=== PATIENT | female | born 1940 | race Caucasian/White ===

== ENCOUNTER 2023-09-29 06:22 | Inpatient (IN) | payer MEDICARE, SELFPAY ==
[2023-09-23 07:57] VITALS: BMI 27.2
[2023-09-23 08:43] LABS: Hematocrit 37.4 % (37.0-47.0); Hemoglobin 12.3 g/dL (12.0-16.0); Mean Corp Hgb Conc. 32.9 g/dL (33.0-37.0); Mean Corpuscular Volume 97.4 fL (81.0-99.0); Mean Platelet Volume 11.6 fL (7.4-10.4); Platelet Count 162 10^3/uL (130-400); Red Blood Cell Count 3.84 10^6/uL (4.20-5.40); Red Cell Dist. Width 12.5 % (11.5-14.5); White Blood Cell Count 5.9 10^3/uL (4.8-10.8)
[2023-09-23 08:59] LABS: Blood Urea Nitrogen 21 mg/dl (7-17); Carbon Dioxide 29 mmol/L (22-30); Chloride 104 mmol/L (98-107); Estimated Creatinine Clearance 53 ml/min; Glucose 84 mg/dl (70-99); Potassium 4.3 mmol/L (3.5-5.1); Sodium 138 mmol/L (135-145); eGFR > 60.00
[2023-09-29] VITALS (30 sets, daily range): BP systolic 0–161; BP diastolic 55–97; BMI 27.2
[2023-09-29] MEDS: TYLENOL 1000 MG PO (08:51)
[2023-09-29] MEDS: NORMOSOL-R 1000 IV ×3 (08:52→23:00)
--- NOTE | 2023-09-29 13:56 | W.IMMPOSTOP ---
Addendum entered and electronically signed by Gunnar Chavez MD 09/29/23 15:31:
[facility]# [id number]
Original Note:
Surgical Immed Post Op Note
-
Primary Surgeon: Kathy
Assisting Surgeon: Dru
Pre-op Diagnosis: Recurrent ventral incisional hernia
Post-op Diagnosis: Recurrent ventral incisional hernia
Procedure Performed: Exploratory laparotomy, lysis of adhesions, bilateral myofascial releases (TAR), open repair of ventral incisional hernia repair with mesh
Anesthesia Type: General
Specimen / Cultures: None
Estimated Blood Loss: 23 cc
Complications: None
Operative Findings:
1. Omental, colonic and small bowel adhesions, BENITA > 90 min
2. Hernia defect 15 x 25 cm
3. Bilateral TAR myofascial releases, neurovascular bundles protected
4. Retrorectus Bard soft 30 x 30 cm mesh
5. Primary closure of posterior and anterior sheath
6. R JSOH into retrorectus space, L JOSH into subcutaneous space
[2023-09-29] MEDS: TYLENOL 650 MG PO ×2 (17:15→20:38)
--- NOTE | 2023-09-29 18:29 | PTCARENOTE ---
Received from PACU this afternoon- IMU monitors placed - admission completed. AAOx3 c/o minimal 2/10 pain abdomen. Clear liquids provided, IVF infusing as ordered. 95% on RAIR- IS given. SR on tele, BP 150/90s- due to resume metoprolol this pm
other meds in am. Abdominal binder intact- under that is ABD pads that remain CDI. JPx2 on right and left abd. patent- emptied and recorded. Dowell in place have some blood tinged urine, adequate output though- Dr. Chavez aware. SCDs intact
--- NOTE | 2023-09-29 20:30 | PTCARENOTE ---
Received pt from [facility]. Pt is AAOx3, NOORVIK. NSR on the monitor. On RA O2 sat 94%, lungs clear. Dowell in place, hygiene provided. R and L JOSH drains intact. Abd incision c/d/i. SCDs in place. IVF infusing @ 100 ml/hr. Pt is laying comfortable in
bed with call evnas in reach.
[2023-09-29] MEDS: ULTRAM 50 MG PO (20:37)
[2023-09-29] MEDS: TOPROL XL 50 MG PO (20:38)
[2023-09-30] VITALS (18 sets, daily range): BP systolic 116–165; BP diastolic 54–102
[2023-09-30] MEDS: TYLENOL PO ×3 (00:12→23:59)
[2023-09-30] MEDS: ULTRAM 50 MG PO ×4 (02:43→20:15)
[2023-09-30] MEDS: TYLENOL 650 MG PO ×4 (02:43→20:15)
[2023-09-30] MEDS: SYNTHROID 112 MCG PO (05:50)
--- NOTE | 2023-09-30 07:41 | W.PN.GS2 ---
Today's Communication / Plan
-
-- Fulls, consider advancement to regular this afternoon/evening if no issues throughout the day
-- Pain control: Tylenol, Toradol, Tramadol, IV Morphine PRN
-- HLIV, tentative plan to restart Lasix tomorrow
-- Maintain Dowell for now given mobility issues, plan for DC tomorrow
-- Home medications ordered
Assessment / Plan
-
Patient is an 83 yo F POD#1 s/p open recurrent ventral incisional hernia repair with retrorectus mesh and bilateral myofascial release
Recovering well. No postoperative concerns.
-- Fulls, consider advancement to regular this afternoon/evening if no issues throughout the day
-- Pain control: Tylenol, Toradol, Tramadol, IV Morphine PRN
-- HLIV, tentative plan to restart Lasix tomorrow
-- Maintain Dowell for now given mobility issues, plan for DC tomorrow
-- Home medications ordered
-- Hold Eliquis, Lovenox for DVT
-- PPI for GI
-- OOB/ambualte
Subjective Data
-
Date of Service: September 30, 2023
No major complaints. Pain overall well-controlled and rated at a 6-7 out of 10. Reports burping, but denies any nausea or vomiting. Passing flatus, no BM. No fevers. No ambulation.
Objective Data
-
Intake and Output
09/29/23 09/30/23 10/01/23
06:59 06:59 06:59
Intake Total 2960 / 2960
Output Total 2495 / 2495
Balance 465 / 465
Intake:
Oral fluids 1010 / 1010
IV fluids (Total) 1950 / 1950
Normosol 150 / 150
Output:
Drain Output (Total) 285 / 285
Left Abdomen Param-Ptarick B 45 / 45
Right Abdomen ParamDarnell A 240 / 240
Urine, Dowell 2210 / 2210
Vital Signs
Temp Pulse Resp BP Pulse Ox
99.1 F 61 16 154/68 95
09/30/23 03:10 09/30/23 06:00 09/30/23 06:00 09/30/23 06:00 09/30/23 06:00
Calcium 9.0 mg/dl (8.4-10.2) 09/23/23 07:17
Physical Exam
-
Gen: NAD
Abd: soft, appropriately tender, ND, non-peritoneal, midline with minor shadowing, JOSH with serosang
: Dowell cleared
[2023-09-30] MEDS: LIPITOR 10 MG PO (07:52)
[2023-09-30] MEDS: TOPROL XL 50 MG PO ×2 (07:52→20:16)
[2023-09-30] MEDS: PACERONE 100 MG PO ×2 (07:52→21:46)
[2023-09-30] MEDS: NSS (PRESERVATIVE FREE) 10 ML IV (07:53)
[2023-09-30] MEDS: PROTONIX IV 40 MG IV (07:53)
[2023-09-30 08:29] LABS: Hematocrit 33.1 % (37.0-47.0); Hemoglobin 11.3 g/dL (12.0-16.0); Mean Corp Hgb Conc. 34.1 g/dL (33.0-37.0); Mean Corpuscular Hgb 32.3 pg (27.0-31.0); Mean Corpuscular Volume 94.6 fL (81.0-99.0); Mean Platelet Volume 10.9 fL (7.4-10.4); Platelet Count 160 10^3/uL (130-400); Red Cell Dist. Width 12.7 % (11.5-14.5); White Blood Cell Count 11.6 10^3/uL (4.8-10.8)
[2023-09-30 08:42] LABS: Blood Urea Nitrogen 9 mg/dl (7-17); Calcium 8.1 mg/dl (8.4-10.2); Carbon Dioxide 30 mmol/L (22-30); Chloride 105 mmol/L (98-107); Estimated Creatinine Clearance 70 ml/min; Glucose 114 mg/dl (70-99); Potassium 4.4 mmol/L (3.5-5.1); Sodium 138 mmol/L (135-145); eGFR > 60.00
--- NOTE | 2023-09-30 15:00 | PTCARENOTE ---
Received pt from IMU.Report from [facility]. Pt awake, alert and oriented x3. Pt assessment unchanged from previous shift. Pt c/o abd pain received ultram and tylenol prior to arrival to floor. Pt has midline abd incision dressing CDI, B/L JOSH Drain.
Dowell draining [place] urine. Pt oriented to room, call evans within reach, plan of care ongoing.
--- NOTE | 2023-09-30 15:22 | CM ---
,met with patient and her in house with 1 otoniel,she ambulates with a cane or walker depending on status of her arthritis.she has had vn in past but has never been to ip rehab.her pcp is suzan winn and she uses [facility] in [place] for
her meds. pt is adm for recurrent ventral hernia repair with mesh.patient has a shirley,is on full liquid diet which can be advanced , pain is controlled , to resume lasix tomorrow.For possible dc home tomorrow.
plan is dc home with vn from [facility] or return to op physical therapy.await decision from patient after she speaks to her surgeon tomderik.
[2023-09-30] MEDS: LOVENOX 40 MG SC (17:02)
--- NOTE | 2023-09-30 18:45 | PTCARENOTE ---
Pt called this RN into and stated ' I feel like im in Afib' Pt has a history of Afib, EKG completed, results Afib with RVR. Pt other VSS, 94% on RA. Spoke with MD, Pt placed on tele rates 120s-140s. Orders for 5mg IV Lopressor x1. Given per orders.
Call evans within reach, plan of care ongoing.
[2023-09-30] MEDS: LOPRESSOR 5 MG IV (19:23)
--- NOTE | 2023-09-30 21:45 | W.PN.UPDATE ---
Update Note
Progress Note Update
Consult placed for [facility]. Spoke with Chaz ZHAO and reviewed case with him tonight. Will start Cardizem infusion and increase Amiodorone to TID (a dose given now). Will continue to hold Eliquis until deemed appropriate to restart per
surgical service.
[2023-09-30] MEDS: AMBIEN 5 MG PO (22:03)
[2023-09-30] MEDS: CARDIZEM 125 IV (22:03)
--- NOTE | 2023-09-30 22:15 | PTCARENOTE ---
Cardizem gtt infusing at 10mg/hr per order. Patient updated with plan of care.
[2023-10-01 02:55] VITALS: BP 114/68
[2023-10-01] MEDS: TYLENOL PO (04:31)
[2023-10-01] MEDS: SYNTHROID 112 MCG PO (05:38)
[2023-10-01] MEDS: ULTRAM 50 MG PO ×3 (05:38→21:06)
[2023-10-01 06:00] VITALS: BMI 27.0
[2023-10-01 07:52] VITALS: BP 137/99
[2023-10-01 08:16] LABS: Hematocrit 34.8 % (37.0-47.0); Hemoglobin 11.7 g/dL (12.0-16.0); Mean Corp Hgb Conc. 33.6 g/dL (33.0-37.0); Mean Corpuscular Hgb 32.2 pg (27.0-31.0); Mean Corpuscular Volume 95.9 fL (81.0-99.0); Mean Platelet Volume 11.2 fL (7.4-10.4); Platelet Count 180 10^3/uL (130-400); Red Blood Cell Count 3.63 10^6/uL (4.20-5.40); Red Cell Dist. Width 12.7 % (11.5-14.5); White Blood Cell Count 11.2 10^3/uL (4.8-10.8)
[2023-10-01 08:40] LABS: Blood Urea Nitrogen 9 mg/dl (7-17); Calcium 8.7 mg/dl (8.4-10.2); Carbon Dioxide 29 mmol/L (22-30); Chloride 102 mmol/L (98-107); Estimated Creatinine Clearance 70 ml/min; Glucose 111 mg/dl (70-99); Magnesium 2.1 mg/dl (1.6-2.3); Phosphorus 2.7 mg/dl (2.5-4.5); Potassium 4.4 mmol/L (3.5-5.1); Sodium 137 mmol/L (135-145); eGFR > 60.00
[2023-10-01] MEDS: PROTONIX IV 40 MG IV (08:46)
[2023-10-01] MEDS: NSS (PRESERVATIVE FREE) 10 ML IV (08:46)
[2023-10-01] MEDS: TYLENOL 650 MG PO ×4 (08:48→21:06)
[2023-10-01] MEDS: TOPROL XL 50 MG PO (08:48)
[2023-10-01] MEDS: LIPITOR 10 MG PO (08:48)
[2023-10-01] MEDS: PACERONE 100 MG PO (08:48)
--- NOTE | 2023-10-01 09:02 | CON.CAR ---
Addendum entered and electronically signed by Mark Baez MD 10/01/23 13:42:
83-year-old woman well-known to me with history of extensive and numerous abdominal procedures in recent years, admitted on September 29 for exploratory laparotomy, lysis of adhesion and myofascial release with open repair of ventral incisional hernia
with mesh. She went into atrial fibrillation with rapid ventricular response late on postop day 1, with increase in amiodarone dosing and IV diltiazem and has now converted to sinus rhythm. This has been a recurring pattern during prior surgical
stays. Currently, she feels well.
PMH: Paroxysmal atrial fibrillation/tachycardia on amiodarone, hypertension, hyperlipidemia, history of Graves' disease, now hypothyroid, anxiety and depression, cervical myelopathy,
PSH: Appendectomy, tonsillectomy, bilateral total hips, history of right hemicolectomy with numerous abdominal surgeries, prior herniorrhaphy
SH: , non-smoker rare drinker, retired nurse
FH: Reviewed
Allergies: Hydrochlorothiazide
Outpatient medications: Amiodarone 100 mg a day, atorvastatin, Eliquis 5 twice daily, furosemide 20 mg as needed, levothyroxine, metoprolol ER 50 mg twice daily, potassium as needed current medications, Lovenox 40 daily, atorvastatin 10 mg daily,
levothyroxine 112 mcg daily, metoprolol ER 75 mg twice daily, amiodarone 200 mg 3 times daily
PMH/PSH/SH/FH: Reviewed
Review of systems reviewed
137/99, pulse 89, afebrile, sats 95%, intake and output -2.2 L,
ECG atrial fibrillation, possibly atypical flutter with variable conduction
Repeat EKG normal sinus rhythm, 69 bpm
White count 11.2, hemoglobin 11.7, BUN and creatinine 9 and 0.9, sodium 137, potassium 4.4
Impression:
s/p open ventral incisional hernia repair 09/29/2023
Paroxysmal Afib/tach
Post-OP afib w/ RVR 09/30/2023
h/o 6 second conversion pause in the setting on Lopressor and Cardizem gtt 09/01/20Chronic amiodarone therapy
Chronic Eliquis OAC
HTN
Hyperlipidemia
Hypothyroid, Graves' Disease
Anemia
Anxiety/Depression
h/o Lyme Disease
Cervical myelopathy with upper extremity weakness
Echo 09/02/2020: EF 70%, MAC with trace MR, aortic sclerosis without stenosis
Plan:
Despite her postoperative atrial fibrillation, she looks well at this time.
Continue amiodarone. At discharge would make amiodarone 200 mg a day instead of 100 mg a day until follow-up.
Probably okay to continue metoprolol at previous dose, metoprolol ER 50 mg twice daily.
Restart Eliquis when safe from surgical standpoint
Anticipate discharge tomorrow from cardiac standpoint.
Recommended cardiac medications at discharge:
Amiodarone 200 mg daily (increased dose)
Atorvastatin 10 mg daily
Eliquis 5 mg twice daily
Furosemide 20 mg daily as needed along with potassium 20 meq daily when taking furosemide
Metoprolol ER 50 mg twice daily
Please call if needed.
We will arrange for cardiac follow-up
Original Note:
Consultation
Consultation Request
Date/Time Consultation Requested: 10/01/2023
Date/Time Consultation Performed: 10/01/2023 at 0830
Requesting Provider: Dr. Chavez
Performing Provider: Dr. HITESH Baez
Reason for Consultation: Post-Op Afib
Medical History
-
History of Present Illness:
HPI: Mrs. Blair is an 83 year old female with PMH of paroxysmal atrial fibrillation, hypertension, hyperlipidemia, hypothyroidism, anemia, anxiety, lyme disease, and cervical myelopathy who presented to for elective hernia repair. On 09/29/2023,
she underwent exploratory laparotomy, lysis of adhesions, and bilateral myofascial release with open repair of ventral incisional hernia repair with mesh. She has been recovering and went into rapid Afib in PM on 09/30/2023. She reports with that
she felt palpitations and heart racing with an anxious feeling. She was started on Cardizem drip and her amiodarone was increased. She remained in A-fib this morning, however heart rates are improved. She is feeling well currently with no active
complaints. Efrain remains on hold following recent surgery.
PMH:
Paroxysmal Afib/tach
h/o 6 second conversion pause in the setting on Lopressor and Cardizem gtt 09/01/20
Chronic amiodarone therapy
Chronic Eliquis OAC
HTN
Hyperlipidemia
Hypothyroid, Graves' Disease
Anemia
Anxiety/Depression
h/o Lyme Disease
Cervical myelopathy with upper extremity weakness
Past Medical History
Past Medical History: Other (In HPI)
Past Surgical History: Other (appendectomy, tonsillectomy, b/l CHRISTOPH, R hemicolectomy w/ anastomosis, b/l cataract extraction, ileostomy reversal, hernia repair w/ mesh)
Social History
Tobacco: Non-Smoker
Alcohol: Occasional
Drug: None
Personal:
Living: With Family
Employment: Retired
Family History
Family History: Reviewed & Not Pertinent
Allergies / Home Medications
Allergy/AdvReac Type Severity Reaction Status Date / Time
hydrochlorothiazide Allergy HYPONATREMI Verified 09/30/23 21:35
A
Medication Instructions Recorded Confirmed Type
B-complex with vitamin C 1 tab PO DAILY Supplement #30 06/08/22 09/29/23 Rx
tab-caps
amiodarone 100 mg tablet 100 mg PO DAILY Arrhythmia #30 tabs 06/08/22 09/29/23 Rx
apixaban 5 mg tablet (Eliquis) 5 mg PO BID #60 tabs 06/08/22 09/29/23 Rx
atorvastatin 10 mg tablet 10 mg PO DAILY High cholesterol 06/08/22 09/29/23 Rx
#30 tabs
metoprolol succinate 50 mg 50 mg PO BID Blood pressure #60 06/08/22 09/29/23 Rx
tablet,extended release 24 hr tabs
(Toprol XL)
multivitamin 1 tab PO DAILY Supplement #30 tabs 06/08/22 09/29/23 Rx
zolpidem 5 mg tablet 5 mg PO HSPRN PRN sleep #1 tab 06/08/22 09/29/23 Rx
levothyroxine 100 mcg tablet 112 mcg PO DAILY Thyroid 08/19/23 09/29/23 History
tramadol 50 mg tablet 50 mg PO Q6H PRN pain 08/19/23 09/29/23 History
acetaminophen 500 mg tablet (Pain 1,000 mg PO PRN PRN pain 09/27/23 09/29/23 History
Reliever Extra Strength
(acetaminophen))
cholecalciferol (vitamin D3) 25 25 mcg PO DAILY 09/27/23 09/29/23 History
mcg (1,000 unit) capsule (Vitamin
D3)
cyclobenzaprine 10 mg tablet 10 mg PO PRN PRN Spasms 09/27/23 09/29/23 History
furosemide 20 mg tablet 20 mg PO PRN PRN Edema 09/27/23 09/29/23 History
potassium chloride 20 mEq 20 meq PO PRN PRN When taking 09/27/23 09/29/23 History
tablet,extended release Furosemide
peg-electrolyte oral solution 240 ml PO PER PROTOCOL 09/29/23 09/29/23 History
Review of Systems
-
History Source: Patient
All other systems: Negative unless noted
Physical Exam
Vital Signs
Temp Pulse Resp BP Pulse Ox
99.2 F 89 18 137/99 95
10/01/23 07:52 10/01/23 08:39 10/01/23 07:52 10/01/23 07:52 10/01/23 07:52
Lab Results
10/01/23 07:33
10/01/23 07:33
Physical Exam
General: Well Developed, Well Nourished and No Apparent Distress
HEENT: Normocephalic, Anicteric and Moist Mucous Membranes
Respiratory: Clear and Non Labored Respirations
Cardiac: S1/S2 and Irregular Rhythm
Musculoskeletal: No Clubbing, No Cyanosis and No Edema
Skin: Warm and Dry
Neuro: AO x 3 and Nonfocal/Grossly Intact
Psych: Calm
Impression / Plan
-
PCP: Dr. Ballesteros
Cardiology: Dr. HITESH Baez
Impression:
s/p open ventral incisional hernia repair 09/29/2023
Paroxysmal Afib/tach
Post-OP afib w/ RVR 09/30/2023
h/o 6 second conversion pause in the setting on Lopressor and Cardizem gtt 09/01/20
Chronic amiodarone therapy
Chronic Eliquis OAC
HTN
Hyperlipidemia
Hypothyroid, Graves' Disease
Anemia
Anxiety/Depression
h/o Lyme Disease
Cervical myelopathy with upper extremity weakness
Echo 09/02/2020: EF 70%, MAC with trace MR, aortic sclerosis without stenosis
Plan:
-She is POD #2 s/p open ventral incisional hernia repair 09/29/2023.
-Went into rapid A-fib in PM 09/30/2023. Started on Cardizem drip and heart rates improved overnight.
-This AM, around 0930, patient spontaneously converted to SR. HR stable in the 70s. No conversion pause noted.
-EKG checked to confirm.
-Stop Cardizem drip. Will continue Toprol, but will increase dose to 75 mg twice daily.
-Continue amiodarone 100 mg 3 times daily. At discharge, would consider sending out on 200 mg daily until seen in follow-up.
-Continue to follow BP and heart rates while admitted.
-Eliquis has been on hold perioperatively. Resume once safe from surgical perspective.
-K and mag stable at 4.4 and 2.1 respectively.
-Continue postop care.
HPI: Mrs. Blair is an 83 year old female with PMH of paroxysmal atrial fibrillation, hypertension, hyperlipidemia, hypothyroidism, anemia, anxiety, lyme disease, and cervical myelopathy who presented to for elective hernia repair. On 09/29/2023,
she underwent exploratory laparotomy, lysis of adhesions, and bilateral myofascial release with open repair of ventral incisional hernia repair with mesh. She has been recovering and went into rapid Afib in PM on 09/30/2023. She reports with that
she felt palpitations and heart racing with an anxious feeling. She was started on Cardizem drip and her amiodarone was increased. She remained in A-fib this morning, however heart rates are improved. She is feeling well currently with no active
complaints. Efrain remains on hold following recent surgery.
Data Reviewed
-
EKG: Tracing Personally Visualized and interpreted
Labs: Labs Reviewed by me
Old Records: Reviewed
[2023-10-01] MEDS: MIRALAX 17 GRAMS PO (09:15)
--- NOTE | 2023-10-01 09:22 | PTCARENOTE ---
Patient converted to NSR HR 70. EKG is done. Cardiology ADENIKE Cox made aware.
--- NOTE | 2023-10-01 10:56 | PTCARENOTE ---
Patient voided post shirley removal this am.
--- NOTE | 2023-10-01 13:39 | W.PN.GS2 ---
Today's Communication / Plan
-
-- LRD
-- HLIV, resume Lasix
-- Dowell removed this AM
-- Home medications ordered, Cardizem gtt and adjustments in HR medications per Cardiology, appreciate help
-- Hold Eliquis (resume tomorrow)
Assessment / Plan
-
Patient is an 83 yo F POD#2 s/p open recurrent ventral incisional hernia repair with retrorectus mesh and bilateral myofascial release
Afib, chronic due to fluid shifts
-- LRD
-- Pain control: Tylenol, Toradol, Tramadol, IV Morphine PRN
-- HLIV, resume Lasix
-- Dowell removed this AM
-- Home medications ordered, Cardizem gtt and adjustments in HR medications per Cardiology, appreciate help
-- Hold Eliquis (resume tomorrow), Lovenox for DVT
-- PPI for GI
-- OOB/ambualte
Subjective Data
-
Date of Service: October 01, 2023
Reports feeling her heart fluttering and A-fib. No nausea or vomiting. No worsening abdominal pain, well-controlled. Passing flatus, no BM. No fevers. Ambulating yesterday.
Objective Data
-
Intake and Output
09/30/23 10/01/23 10/02/23
06:59 06:59 06:59
Intake Total 2960 / 2960 600 / 600
Output Total 2495 / 2495 2930 / 2930
Balance 465 / 465 -2330 / -2330
Intake:
Oral fluids 1010 / 1010 600 / 600
IV fluids (Total) 1950 / 1950
Normosol 150 / 150
Output:
Drain Output (Total) 285 / 285 255 / 255
Left Abdomen Param-Patrick B 45 / 45 100 / 100
Right Abdomen Param-Patrick A 240 / 240 155 / 155
Urine, Dowell 2210 / 2210 2675 / 2675
Vital Signs
Temp Pulse Resp BP Pulse Ox
99.2 F 89 18 137/99 95
10/01/23 07:52 10/01/23 08:39 10/01/23 07:52 10/01/23 07:52 10/01/23 07:52
Lab Results
10/01/23 07:33
10/01/23 07:33
Calcium 8.7 mg/dl (8.4-10.2) 10/01/23 07:33
Phosphorus 2.7 mg/dl (2.5-4.5) 10/01/23 07:33
Magnesium 2.1 mg/dl (1.6-2.3) 10/01/23 07:33
Physical Exam
-
Gen: NAD
Abd: soft, appropriately tender, ND, non-peritoneal, incision c/d/i - no erythema, ecchymosis or drainage, JPs serosang
[2023-10-01 15:00] VITALS: BP 133/73
--- NOTE | 2023-10-01 16:45 | VNURNOTE ---
Home Health Liaison met with patient at 1530 to discuss [facility] nurse/therapy, visits, schedule and homebound status. Patient is agreeable and understands that visits at home will be 2-3 x per week to assess and teach medical management and JOSH drain
care.
[facility] brochure provided with contact information. Patient is aware that [facility] will contact them for start of care in 1-2 days after discharge from .
[facility] referral completed in [facility].
[2023-10-01] MEDS: PACERONE 200 MG PO (17:15)
[2023-10-01] MEDS: LOVENOX 40 MG SC (17:16)
[2023-10-01 19:18] VITALS: BP 111/67
[2023-10-01] MEDS: TOPROL XL 75 MG PO (21:06)
[2023-10-01] MEDS: AMBIEN 5 MG PO (22:39)
[2023-10-01] MEDS: PACERONE PO (22:43)
[2023-10-01 23:31] VITALS: BP 117/58
--- NOTE | 2023-10-02 00:45 | PTCARENOTE ---
Patient refused 22:00 dose of Amio 200 mg. Patient states on last admission when she took 200 mg BID she had issues with bradycardia and did not want to go through that again. Patient BP stable, HR on tele monitor in the 50s while patient is
sleeping, 60s-70s while awake.
[2023-10-02] MEDS: TYLENOL PO ×2 (00:57→05:02)
[2023-10-02 03:12] VITALS: BP 116/48
[2023-10-02] MEDS: SYNTHROID 112 MCG PO (05:30)
[2023-10-02 07:01] VITALS: BP 105/75
[2023-10-02] MEDS: NSS (PRESERVATIVE FREE) 10 ML IV (08:17)
[2023-10-02] MEDS: PROTONIX IV 40 MG IV (08:17)
[2023-10-02] MEDS: MIRALAX 17 GRAMS PO (08:18)
[2023-10-02] MEDS: TYLENOL 650 MG PO ×2 (08:20→11:52)
[2023-10-02] MEDS: TOPROL XL 75 MG PO (08:21)
[2023-10-02] MEDS: ULTRAM 50 MG PO ×2 (08:21→14:34)
[2023-10-02] MEDS: LIPITOR 10 MG PO (08:21)
[2023-10-02] MEDS: PACERONE 200 MG PO (08:21)
[2023-10-02 08:48] LABS: Hematocrit 31.9 % (37.0-47.0); Hemoglobin 10.6 g/dL (12.0-16.0); Mean Corp Hgb Conc. 33.2 g/dL (33.0-37.0); Mean Corpuscular Hgb 31.7 pg (27.0-31.0); Mean Corpuscular Volume 95.5 fL (81.0-99.0); Mean Platelet Volume 10.4 fL (7.4-10.4); Platelet Count 172 10^3/uL (130-400); Red Blood Cell Count 3.34 10^6/uL (4.20-5.40); Red Cell Dist. Width 12.7 % (11.5-14.5); White Blood Cell Count 8.4 10^3/uL (4.8-10.8)
[2023-10-02 09:10] LABS: Blood Urea Nitrogen 16 mg/dl (7-17); Calcium 8.4 mg/dl (8.4-10.2); Carbon Dioxide 30 mmol/L (22-30); Chloride 101 mmol/L (98-107); Estimated Creatinine Clearance 52 ml/min; Glucose 101 mg/dl (70-99); Sodium 134 mmol/L (135-145); eGFR > 60.00
[2023-10-02 09:18] LABS: Potassium 4.1 mmol/L (3.5-5.1)
[2023-10-02 11:11] VITALS: BP 122/68
--- NOTE | 2023-10-02 11:20 | W.PN.GS2 ---
Addendum entered and electronically signed by Obinna Ambrose MD 10/02/23 11:58:
I saw and examined the patient.
The Training Associate's note was reviewed and I agree with the note.
Comment: Doing well post-op, meets criteria for DC. Exam approp, drains ss, incisions cdi. On her home meds. DC planning
Original Note:
Today's Communication / Plan
-
Discharge planning
Assessment / Plan
-
Patient is an 83 yo F POD#3 s/p open recurrent ventral incisional hernia repair with retrorectus mesh and bilateral myofascial release
Afib post op now in NSR. Appreciate cardiology recs.
AFVSS
Labs without significant abnormality. Slight post op anemia secondary to expected blood loss intraop and fluid shifts. JOSH's with mostly serous fluid. No overt bleeding.
-- LRD
-- Pain control: Tylenol, Toradol, Tramadol
-- Lasix resumed post op
-- Continue home meds, will d/c on increased amiodarone as per cardiology
-- Eliquis resumed this am
-- PPI for GI
-- OOB/ambulate
-- Continue with JOSH's
-- D/C planning
Subjective Data
-
Date of Service: October 02, 2023
Patient seen and examined at bedside with Dr. Ambrose. Denies n/v. Voiding well. Passing flatus. Tolerating diet. Denies significant pain, n/v.
Objective Data
-
Intake and Output
10/01/23 10/02/23 10/03/23
06:59 06:59 06:59
Intake Total 600 / 600 240 / 240
Output Total 2930 / 2930 145 / 145
Balance -2330 / -2330 95 / 95
Intake:
Oral fluids 600 / 600 240 / 240
Output:
Drain Output (Total) 255 / 255 145 / 145
Left Abdomen Param-Patrick B 100 / 100 50 / 50
Right Abdomen Param-Patrick A 155 / 155 95 / 95
Urine, Dowell 3737 / 2675
Other:
Number of approximated MODERATE 3
amounts of urine
Number of approximated LARGE 2
amounts of urine
Vital Signs
Temp Pulse Resp BP Pulse Ox
97.3 F 66 18 122/68 97
10/02/23 11:11 10/02/23 11:11 10/02/23 11:11 10/02/23 11:11 10/02/23 11:11
Lab Results
10/02/23 08:37
10/02/23 08:37
Calcium 8.4 mg/dl (8.4-10.2) 10/02/23 08:37
Phosphorus 2.7 mg/dl (2.5-4.5) 10/01/23 07:33
Magnesium 2.0 mg/dl (1.6-2.3) 10/02/23 08:37
Physical Exam
-
Gen: NAD
Abd: soft, appropriately tender, ND, non-peritoneal, incision c/d/i - no erythema, ecchymosis or drainage, JPs serosang (mostly serous)
--- NOTE | 2023-10-02 11:42 | W.DCSUMMARY ---
Discharge Summary
Discharge Data
Date of Admission: 09/29/23
Date of Discharge: 10/02/23
-
Pending Results: No
Hospital Course
This is an 83 yo female with history of paroxysmal atrial fibrillation and multiple abdominal surgeries who presented for surgical management of recurrent ventral incisional hernia with exploratory laparotomy with lysis of adhesions, bilateral
myofascial releases and open repair of the hernia with mesh. Two JOSH drains were left in place post operatively and upon discharge with plan for removal as outpatient once volume of drainage decreased. In the immediate post operative period, she did
have rapid afib which was treated with Cardizem drip initially and then an increase in oral amiodarone as directed by cardiology. She responded well with conversion back to normal sinus rhythm and Cardizem was able to be discontinued. Eliquis was
resumed prior to discharge as hemoglobin remained stable throughout her admission and a prescription was provided for increased dosage of amiodarone. Outpatient surgical and cardiac follow up has been arranged.
Discharge Plan
-
Patient Disposition: Home with Home Care
Discharge Diagnosis/Procedures: Open ventral hernia repair with mesh
Condition: Good
Diet: Regular
Activity: No strenuous activity
Additional Activity: No heavy lifting or strenuous activities for 6 weeks postop
Driving Restrictions: No driving if too sore or taking narcotics
Bathing Restrictions: OK to Shower
Wound Care: Keep incision clean and dry. Glue will flake off in 2 to 3 weeks. Stitches will dissolve. Drains to remain in place, monitor output daily, call office when output is less than 30 cc over 24 to 48 hours.
Activity Restrictions/Additional Instructions:
Call for fevers (>100.5), nausea or vomiting, worsening abdominal, issues with drain, issues with constipation (if no BM in 48 hours take Miralax, if no results take milk of magnesia)
Instructions: Param-Patrick Drain, How to Keep Track of Your Drainage
Referrals:
Nasrin Logan MD [Family Provider] -
Gunnar Chavez MD [Active] - in less than 1 week (for drain removal)
Mark Baez MD [Active] - 10/28/23 8:40 am (You have a follow up appointment with Dr. Baez at the [place] office. Please call with questions. )
Prescriptions:
New
amiodarone 200 mg tablet
200 mg PO DAILY Qty: 30 0RF
acetaminophen [acetaminophen] 325 mg tablet
650 mg PO Q4HPRN PRN (Reason: mild pain) Qty: 1 0RF
Continued
tramadol 50 mg Tablet
50 mg PO Q6H PRN (Reason: pain)
levothyroxine 100 MCG tablet
112 mcg PO DAILY
cyclobenzaprine 10 mg Tablet
10 mg PO PRN PRN (Reason: Spasms)
furosemide 20 mg Tablet
20 mg PO PRN PRN (Reason: Edema)
cholecalciferol (vitamin D3) [Vitamin D3] 25 mcg (1,000 unit) Capsule
25 mcg PO DAILY
potassium chloride 20 mEq Tablet Extended Release
20 meq PO PRN PRN (Reason: When taking Furosemide)
acetaminophen [Pain Reliever ES(acetaminophn)] 500 mg tablet
1,000 mg PO PRN PRN (Reason: pain)
zolpidem 5 mg Tablet
5 mg PO HSPRN PRN (Reason: sleep) Qty: 1 0RF
multivitamin 1 EACH tablet
1 tab PO DAILY Qty: 30 0RF
atorvastatin 10 MG tablet
10 mg PO DAILY Qty: 30 0RF
metoprolol succinate [Toprol XL] 50 mg Tablet Extended Release 24 Hr
50 mg PO BID Qty: 60 0RF
B-complex with vitamin C 1 CAPLET tablet
1 tab PO DAILY Qty: 30 0RF
Eliquis 5 MG tablet
5 mg PO BID Qty: 60 0RF
Discontinued
Golytely Recon Soln
240 ml PO PER PROTOCOL
amiodarone 100 mg Tablet
100 mg PO DAILY Qty: 30 0RF
Discharge Orders:
Discharge Patient (As Directed); Ordered 10/02/23
Ordered By: Kady Gamboa
Discharge Date and Time
Discharge Date/Time: 10/02/23 14:47
--- NOTE | 2023-10-02 11:51 | CM ---
CM Referral for VN.
[facility]
[2023-10-02] MEDS: ELIQUIS 5 MG PO (11:52)
== END 2023-10-02 14:47 | disposition home health service (06) | DRG 337 ==
LOC: 4 EAST ACU 06:22
PROVIDERS: Registered Nurse; ADMITTING PHYSICIAN Surgery; FAMILY PHYSICIAN Family Medicine; OTHER PHYSICIAN Internal Medicine Cardiovascular Disease
PROC: 0WJF4ZZ Inspection of Abdominal Wall, Percutaneous Endoscopic Approach (ICD-10-PCS; 2023-09-29)
PROC: 0WUF0JZ Supplement Abdominal Wall with Synthetic Substitute, Open Approach (ICD-10-PCS; 2023-09-29)
PROC: 0DN80ZZ Release Small Intestine, Open Approach (ICD-10-PCS; 2023-09-29)
DX: K43.2 Incisional hernia without obstruction or gangrene (principal); G89.29 Other chronic pain; M54.9 Dorsalgia, unspecified; E03.9 Hypothyroidism, unspecified; I10 Essential (primary) hypertension; E78.00 Pure hypercholesterolemia, unspecified; F32.A Depression, unspecified; F41.9 Anxiety disorder, unspecified; Z43.2 Encounter for attention to ileostomy; Z90.49 Acquired absence of other specified parts of digestive tract; Z79.01 Long term (current) use of anticoagulants; I48.0 Paroxysmal atrial fibrillation; K66.0 Peritoneal adhesions (postprocedural) (postinfection)
CPT/HCPCS: 36415; 80048; 83735; 84100; 85027; 93005; C1781

== ENCOUNTER → 2024-04-11 10:56 | Outpatient (REF) | payer MEDICARE, SELFPAY | LOC: RCS 10:56 | PROVIDERS: ATTENDING PHYSICIAN Internal Medicine Cardiovascular Disease; FAMILY PHYSICIAN Family Medicine | DX: I48.0 Paroxysmal atrial fibrillation (principal); I27.20 Pulmonary hypertension, unspecified; I34.0 Nonrheumatic mitral (valve) insufficiency | CPT/HCPCS: 93306 ==

== ENCOUNTER → 2024-05-09 13:02 | Outpatient (REF) | payer MEDICARE, SELFPAY | LOC: RAD 13:02 | PROVIDERS: ATTENDING PHYSICIAN Internal Medicine Cardiovascular Disease; FAMILY PHYSICIAN Family Medicine | DX: I48.0 Paroxysmal atrial fibrillation (principal); Z79.899 Other long term (current) drug therapy | CPT/HCPCS: 71046 ==

== ENCOUNTER → 2024-10-13 13:44 | Outpatient (REF) | payer MEDICARE, SELFPAY | LOC: RAD 13:44 | PROVIDERS: ATTENDING PHYSICIAN Internal Medicine Cardiovascular Disease; FAMILY PHYSICIAN Family Medicine | DX: I48.0 Paroxysmal atrial fibrillation (principal); Z79.899 Other long term (current) drug therapy | CPT/HCPCS: 71046 ==

== ENCOUNTER → 2025-04-12 11:43 | Outpatient (REF) | payer MEDICARE, SELFPAY | LOC: RAD 11:43 | PROVIDERS: ATTENDING PHYSICIAN Internal Medicine Cardiovascular Disease; FAMILY PHYSICIAN Family Medicine | DX: I48.0 Paroxysmal atrial fibrillation (principal) | CPT/HCPCS: 71046 ==